=== PATIENT | female | born 1985 | race Caucasian/White ===

== ENCOUNTER 2019-09-07 05:30 | Day surgery (SDC) | payer BC, OTHER ==
[2019-09-03 09:23] VITALS: BMI 24.8
[2019-09-04 18:24] LABS: Hemoglobin 11.5 g/dL (12.0-16.0); Mean Corpuscular HGB CONC 32.1 g/dL (32.0-36.0); Mean Corpuscular Hemoglobin 27.6 pg (27.0-31.0); Mean Platelet Volume 8.7 fL (7.4-10.4); Platelet Count 264 thou/uL (130-400); RBC Distribution Width 13.2 % (11.5-14.5); Red Blood Cell (RBC) Count 4.15 mill/uL (4.20-5.40); White Blood Cell (WBC) Count 5.9 thou/uL (4.8-10.8)
[2019-09-04 18:40] LABS: BHCG - Serum Negative (NEGATIVE); Pregs Control Background? CLEAR/WHITE (CLR/WHITE); Pregs Control Bar Appear? YES (CONTROL BAR)
[2019-09-05 12:37] LABS: SARS-CoV-2 MS2 Positive; SARS-CoV-2 N Gene Negative; SARS-CoV-2 S Gene Negative; SARS-CoV-2 by NAA Not Detected (NotDetected); SARS-CoV-2 orf1ab Negative
[2019-09-07] MEDS ORDERED: CeleCOXIB 100 MG CAP ONE (06:08)
[2019-09-07] MEDS ORDERED: Gabapentin 300 MG CAP ONE (06:08)
[2019-09-07] MEDS ORDERED: Famotidine 20 MG TAB ONE (06:09)
[2019-09-07] MEDS ORDERED: Famotidine/PF 20 mg/2ml Vial ONE (06:09)
[2019-09-07] MEDS ORDERED: Lidocaine 1% w/Epinephrine 1:100K 20 ML VIAL ONE (06:30)
[2019-09-07] MEDS ORDERED: Bupivacaine PF 0.5% 30 ML VIAL ONE (06:30)
[2019-09-07] MEDS ORDERED: Midazolam HCl 2 mg/2 ml Vial ONE (07:30)
[2019-09-07] MEDS ORDERED: Fentanyl 100 MCG/2 ML VIAL ONE (07:30)
[2019-09-07] MEDS ORDERED: Lidocaine 1% PF 5 ML VIAL ONE (09:33)
[2019-09-07] MEDS ORDERED: Dexamethasone 20 MG/5 ML VIAL ONE (09:33)
[2019-09-07] MEDS ORDERED: Glycopyrrolate 0.2 MG/ML 5 ML SYRINGE ONE (09:33)
[2019-09-07] MEDS ORDERED: EPHEDRINE 25 MG/5 ML SYRINGE ONE (09:33)
[2019-09-07] MEDS ORDERED: PROPOFOL 200 MG/20 ML VIAL ONE (09:33)
[2019-09-07] MEDS ORDERED: Rocuronium Bromide 10 MG/ML (10ML VIAL) ONE (09:33)
[2019-09-07] MEDS ORDERED: Ondansetron PF 4 MG/2 ML Vial ONE (09:33)
[2019-09-07] MEDS ORDERED: Meperidine HCl/PF 25 MG/ML VIAL ONE (10:00)
[2019-09-07] MEDS ORDERED: Promethazine HCl 25 MG/ML VIAL ONE (13:30)
[2019-09-07] MEDS ORDERED: Ondansetron ODT 4 MG TAB ONE (14:23)
--- NOTE | 2019-09-08 12:55 | OP ---
DATE OF PROCEDURE: 09/07/2019 PREOPERATIVE DIAGNOSES: 1. Pelvic pain. 2. Menorrhagia. POSTOPERATIVE DIAGNOSES: 1. Pelvic pain. 2. Menorrhagia. PROCEDURE PERFORMED: Robotic-assisted total laparoscopic hysterectomy with bilateral salpingectomy. ANESTHESIA: General endotracheal. TEST CONDUCTOR SURGEON: Jeannine Choudhary PA-C ESTIMATED BLOOD LOSS: 50 mL. IVF: 1700 mL of crystalloid. URINE OUTPUT: 310 mL of clear urine. PATHOLOGY: Uterus, cervix, and bilateral fallopian tubes. COMPLICATIONS: None. DRAINS: Rivas catheter. FINDINGS: Ten-week size, mobile, retroverted uterus with normal contours on abdominal exam. Adhesions of omentum to the anterior abdominal wall as well as the bladder to the lower uterine segment from previous . Normal fallopian tubes and ovaries bilaterally. Ureters and bladder are intact and excellent hemostasis was noted. DESCRIPTION OF PROCEDURE: The patient was taken to the operating room where general anesthesia was obtained without difficulty. The patient was prepped and draped in a sterile fashion in a dorsal lithotomy position. A Rivas catheter was placed in the bladder. A speculum was placed in the vagina. The anterior lip of the cervix was grasped with a single-tooth tenaculum. The uterus was then sounded to 10 cm and the cervix was progressively dilated with Kd dilators. The LUISA manipulator was assembled with a 10-cm tip and a 4-cm colpotomizer ring. The manipulator was inserted into the uterus and ring advanced to fit snugly around the cervix. The speculum and tenaculum were removed out of the vagina. Legs were placed in low lithotomy. Attention was turned to the abdomen. A mixture of anesthetic solution was infiltrated into the umbilicus in the superior aspect and a 12 mm skin incision was made. The Veress needle was passed into the abdomen, noting an opening pressure of 1 mmHg. Pneumoperitoneum was obtained without difficulty. The Veress needle was removed and a 12-mm trocar was advanced into the abdomen and confirmed placement with robotic camera. Steep Trendelenburg was obtained. Right and left lower quadrant 8-mm robotic trocars were placed under direct visualization after infiltrating with anesthetic. The right upper quadrant 11-mm visitor services assistant port was also placed under direct visualization after infiltrating with anesthetic. The robot was then docked. The right robotic arm contained a monopolar scissors. Left robotic arm contained a fenestrated bipolar. The surgeon console took control. The right fallopian tube was grasped and elevated and the mesosalpinx was cauterized and then incised and then removed out of the abdomen. The utero-ovarian was cauterized with the fenestrated and then incised with the scissors on cautery as well as the round ligament was cauterized and incised and these incisions were then met with a combination of the cautery for hemostasis with the fenestrated and incision with the scissors on cautery. The anterior and posterior leaf of the broad ligament was then opened up. The posterior leaf of the broad ligament was incised down to the level of the uterosacral. The anterior leaf of the broad ligament was undermined with the fenestrated by tenting up to ensure clear window and then incised with scissors on cautery. The retroperitoneum was then dissected off the uterine vessels. The patient was very oozy during the case and careful hemostasis was achieved with the fenestrated. The bladder was then layered out. Initially, it was backfilled to identify the limitations of where the bladder mucosa may be. The layering out occurred by grasping thin portions of tissue more superficially and incising once the clear window was identified and then repeating that process until the bladder had been dissected down all across the colpotomizer ring. The attention was turned to the left side where the left fallopian tube was grasped and elevated. The mesosalpinx was cauterized and incised and the fallopian tube was removed out of the abdomen. The round ligament on the left was cauterized with the fenestrated and incised with the scissors as well as the utero-ovarian incisions were met in the middle. The posterior leaf of the broad ligament was dropped down to the level of the uterosacral. There was some additional bleeding from the left side as there were multiple vessels feeding into the patient's uterus as these were identified and they were incised. There was some entry into the uterine vein that caused some bleeding at that time prior to taking down the anterior leaf, however, visualization was improved after the anterior leaf was incised and that area was dissected out better mainly with blunt dissection, however, with blunt dissection, this also made things easier. The vessels were grasped and cauterized multiple times with the fenestrated and hemostasis was achieved. The bladder flap was then further developed using the scoring on the pubocervical fascia and blunt dissection down with the back end of the scissors below the level of the colpotomizer ring. The vessels were cauterized on the right side. After adequate skeletonization and colpotomy was performed laterally, additional hemostasis was needed secondary to the patient's ooziness and this was achieved with the fenestrated by slipping it underneath the pedicle just above the colpotomizer ring and cauterizing. Once colpotomy had been completed, the uterus was placed into the vagina as a means to maintain pneumoperitoneum. The vaginal cuff was irrigated. The scissors were traded out for the needle rental car ferry driver and hemostasis was achieved of the vaginal cuff with the fenestrated. A 2-0 Bard STRATAFIX suture was used to close the vaginal cuff in a running fashion, incorporating vaginal mucosa and posterior peritoneum in each bite and then run back for several sutures to lock it in place. The needle was cut and removed out of the abdomen. Irrigation was then performed again of the pelvis. The ureters were noted in the pelvic sidewall, vermiculating from the pelvic brim down into the pelvic sidewall. The bladder was also backfilled again. There was no bladder injury or extravasation of saline and a low pressure check was performed and hemostasis was noted. Tisseel was placed over the vaginal cuff and the pedicles for hemostasis. Pneumoperitoneum was then released. All instruments were removed out of the abdomen. The robot was undocked. The fascia of the umbilical port was repaired with 0 Vicryl in a [id number] fashion. The skin was closed with 4-0 Monocryl in a subcuticular fashion. Dermabond was applied as well as a pressure dressing. The vaginal cuff was checked and noted to have excellent closure from below and all instruments removed out the vagina. The patient tolerated the procedure well. Sponge, lap, and needle counts correct x2. The patient was taken to recovery room in stable condition. The patient received Ancef 2 g prior to the procedure. Job ID: [id number]
== END 2019-09-07 16:30 | disposition home or self-care (01) ==
LOC: SDC 05:30
PROVIDERS: ATTEND Student in an Organized Health Care Education/Training Program
DX: N72 Inflammatory disease of cervix uteri (principal); D28.2 Benign neoplasm of uterine tubes and ligaments; K66.0 Peritoneal adhesions (postprocedural) (postinfection)
CPT/HCPCS: 84703; 85027; 86850; 86900; 86901; 87635; 88307; J0690; J1100; J2175; J2250; J2405; J2550; J2704; J3010; Q0162; S0020; S0028; U0003

== ENCOUNTER 2020-05-24 17:16 | Emergency (ER) | payer BC, SELFPAY ==
[2020-05-25 01:57] LABS: SARS-CoV-2 PCR by NAA Not Detected (NotDetected)
== END 2020-05-24 19:29 | disposition home or self-care (01) ==
LOC: ERS 17:16
DX: J06.9 Acute upper respiratory infection, unspecified (principal); Z20.822 Contact with and (suspected) exposure to COVID-19
CPT/HCPCS: 87081; 87430; 87635; 87804; 99284; U0003; U0005